=== PATIENT | female | born 1970 | race Caucasian/White ===

== ENCOUNTER 2018-02-26 17:50 | Observation (INO) ==
[2018-02-26] MEDS ORDERED: Dextrose Gel 15 GM/37.5 ML TUBE PO PRN ×2 (20:46)
[2018-02-26] MEDS ORDERED: Gabapentin 300 MG CAPSULE PO PRN (20:50)
[2018-02-26] MEDS ORDERED: Ibuprofen 800 MG TABLET PO PRN (21:20)
--- NOTE | 2018-02-26 21:46 | Internal Med History&Physical ---
Date of Encounter: 02/26/18 Time of Encounter: 21:41 Internal Medicine - H&P: HPI Chief complaint: chest pressure Admitted From: Hospital to Hospital Transfer History of present illness: Ms. CLAIRE is a 47 year old female with a pack-a-day smoking history and history of diabetes complicated by peripheral neuropathy, who presents on transfer from [place] where she went to with a complaint of left chest pressure and discomfort that started yesterday morning upon waking up. She states that when she woke up she felt as though her cat was laying on her chest which was not the case and it continued to progress during the course of the day not noticing any exacerbating features although obtained some relief with rest. She does state that she started having some back pain on the left side as well about 4 days ago. He denies accompanying diaphoresis, dyspnea, chills, fever or any characteristic radiation of the discomfort. She reports a strong family history of cardiac disease in her mother and her sisters. She received loading dose of aspirin and currently states that the pressure is about a 3 out of 10 in severity. Outside records were reviewed and remarkable for a white blood count of 13.9 with relative neutrophilia of 70%, normal BMP with a glucose of 200, d-dimer negative, negative troponin, unremarkable urinalysis, and normal coags. Past Med Surg Social Fam HX - Past Medical History Medical history: diabetes, hyperlipidemia Additional medical history: neuropathy, enlarged spleen, chronically elevated WBC, right benign kidney nodule Psychiatric history: depression - Past Surgical History Surgical History: , cholecystectomy Additional surgical history: hernia repair X3 - Social History Smoking Status: Current every day smoker Packs per day: 2-3 Smokeless Tobacco Status: No Alcohol use: none Drug use: none - Family History Mother Living Status: Hx Family Cardiac Disorders: Yes (heart blockage, HTN, heart failure) Internal Medicine - H&P: Meds Gabapentin [Neurontin] 300 mg PO HS 02/26/18 [History] Gabapentin [Neurontin] 300 mg PO HS PRN 02/26/18 [History] Ibuprofen [Advil] 800 mg PO BID PRN 02/26/18 [History] metFORMIN [Glucophage] 1,000 mg PO BID 02/26/18 [History] 3 Allergy/AdvReac Type Severity Reaction Status Date / Time acetaminophen [From Vicodin] Allergy Itching Verified 02/26/18 20:26 Amoxicillin Allergy Swelling Verified 02/26/18 20:26 of Lip/Tongue/Throat celecoxib [From Celebrex] Allergy Hives Verified 02/26/18 20:26 Erythromycin Base Allergy Swelling Verified 02/26/18 20:26 of Lip/Tongue/Throat hydrocodone [From Vicodin] Allergy Itching Verified 02/26/18 20:26 naproxen Allergy Hives Verified 02/26/18 20:26 Penicillins Allergy Swelling Verified 02/26/18 20:26 of Lip/Tongue/Throat Sulfa (Sulfonamide Allergy Hives Verified 02/26/18 20:26 Antibiotics) valdecoxib [From Bextra] Allergy Hives Verified 02/26/18 20:26 Oxycodone [From Percocet] AdvReac Vomiting Verified 02/26/18 20:26 promethazine [From Phenergan] AdvReac Vomiting Verified 02/26/18 20:26 All Systems PM: A 10-system review of systems was performed and is negative for pertinent findings except as documented above in the HPI. - Constitutional Vitals: Temp Pulse Resp BP Pulse Ox 98.0 F 82 14 119/84 99 02/26/18 20:04 02/26/18 20:04 02/26/18 20:04 02/26/18 20:04 02/26/18 20:04 Exam: Vitals: Reviewed and seen to be within normal limits. General: Well-developed female sitting comfortably out of bed to chair. Not in acute distress. Skin: Warm and supple. HEENT: Moist mucous membranes. No conjunctivae pallor. Neck: No lymphadenopathy. No JVD. No carotid bruits. No palpable thyroid. Chest: Normal thoracic expansion. Normal breath sounds. Clear to auscultation. Tenderness elicited on palpation of the left chest wall and left trapezius muscle. Heart: Normal S1 & S2; rhythmic. Grade 3/6 systolic murmur auscultated in the RUSB. Abdomen: Non-distended, soft and non-tender to palpation. No peritoneal reaction. Extremities: No clubbing, cyanosis or edema. No calf tenderness. Normal distal pulses. Neurological: Awake, alert and oriented to person, place and time. No focal deficits. Psych: Appropriate affect. - Assessment and plan (1) Chest pain Current Visit: Yes Status: Acute Assessment and plan: The patient's HEART score is at the moderate level based on his risk factors and this warrants observation. Her clinical presentation although somewhat suggestive of a cardiac event is now confounded with the presence of inducible chest pain and shoulder pain on palpation suggestive of discomfort of musculoskeletal origin and it coincides perfectly with her areas of complaint. -Will place on NSAIDs prn for pain which she takes at home. -Given her risk factors and risk of atypical presentation, will continue to trend troponins for certainty although since the time her discomfort started till now, one would expect a positive test if it were ACS. -She has a murmur on physical exam and a strong family history of heart disease in the women of her family coupled by her smoking history and poorly controlled diabetes. This prompts me to order a cardiac stress test to ensure she does not have atherosclerotic disease that may be associated with her current symptoms. -Will continue ASA 81mg daily for now. Qualifiers: Chest pain type: chest pain on breathing Qualified Code(s): R07.1 - Chest pain on breathing; R07.81 - Pleurodynia (2) Diabetes Current Visit: Yes Status: Chronic Assessment and plan: The patient is soon to be transitioned to an injectable agent by her PCP given her poor control; currently on metformin. -Will place on insulin sliding scale for now and check her A1C. Qualifiers: Diabetes mellitus type: type 2 Diabetes mellitus long term care pharmacist insulin use: without senior living use Diabetes mellitus complication status: with neurologic complications Diabetes mellitus complication detail: with polyneuropathy Qualified Code(s): E11.42 - Type 2 diabetes mellitus with diabetic polyneuropathy (3) Tobacco dependence Current Visit: Yes Status: Chronic Assessment and plan: Education and counseling given on the risks associated and need to quit. (4) DVT prophylaxis Current Visit: Yes Status: Acute Assessment and plan: SubQ heparin ordered. - Time Spent With Patient Total time spent is greater than 50% in coordination of care (as documented) at patient's floor/unit and/or counseling patient: 25 - 35 minutes
[2018-02-26 21:58] LABS: Basophils # 0.1 K/mcL (0.0-0.2); Basophils % 0.4 %; Eosinophils # 0.4 K/mcL (0.0-0.6); Eosinophils % 2.9 %; Hematocrit 40.3 % (35.3-44.9); Hemoglobin 14.1 g/dL (11.5-15.4); Immature Granulocytes % 0.5 % (0-4); Lymphocytes # 4.2 K/mcL (0.6-4.6); Lymphocytes % 31.6 %; Mean Corpuscular Volume 85.7 fL (83.0-100.0); Mean Platelet Volume 11.1 fL (9.4-12.4); Monocytes # 0.8 K/mcL (0.0-1.3); Monocytes % 5.7 %; Neutrophils # 7.8 K/mcL (1.6-8.9); Platelet Count 243 K/mcL (140-400); Red Cell Distribution Width 13.7 % (11.5-14.5); Segmented Neutrophils % 58.9 %
[2018-02-26] MEDS: *HR* Heparin 5,000 UNIT/ML VIAL SQ SCH (21:59)
[2018-02-26 22:15] LABS: Troponin I < 0.03 ng/mL (< 0.04)
[2018-02-26 22:28] LABS: Platelet Clumps Few (Not Present)
[2018-02-26 23:10] LABS: Estimated Average Glucose 169 mg/dl; Hemoglobin A1C 7.5 %
[2018-02-26 23:43] LABS: BUN/Creatinine Ratio 20 (6-26); Blood Urea Nitrogen 12 mg/dL (6-20); Calcium 9.2 mg/dL (8.6-10.3); Carbon Dioxide 14 mEq/L (23-29); Chloride 112 mEq/L (98-107); Chol/HDL Ratio 6.1 (0-4.9); Cholesterol 189 mg/dL (< 200); Glucose 138 mg/dL (70-105); HDL Cholesterol 31 mg/dL (40-59); LDL Cholesterol,Calculated 84 mg/dL (0-99); Osmolality,Calculated 296 (280-300); Potassium 4.6 mEq/L (3.5-5.1); Sodium 142 mEq/L (136-145); Triglycerides 368 mg/dL (< 150); eGFR For Non-African Americans > 60 (> 60)
[2018-02-26] MEDS: Insulin LISPRO 300 UNITS/3 ML VIAL SQ SCH (23:55)
[2018-02-27] MEDS: Insulin LISPRO 300 UNITS/3 ML VIAL SQ SCH ×2 (06:00→12:25)
[2018-02-27] MEDS: *HR* Heparin 5,000 UNIT/ML VIAL SQ SCH ×2 (06:15→16:03)
[2018-02-27] MEDS ORDERED: Aspirin 81 MG TAB.CHEW PO SCH (09:00)
[2018-02-27 15:53] VITALS: BP 122/79
--- NOTE | 2018-02-27 16:54 | Discharge Summary ---
- NOTES TO OUTPATIENT PROVIDER Notes to Outpatient Provider: Presented with chest pain underwent a stress test which was negative for any ischemia or infarct Orders not resulted at time of discharge: Pending orders 02/26/18 20:45 EKG [ECG 12 lead ECG] [ECG] Routine 02/27/18 07:04 NM migdalia perf SPECT multi [NM] Routine Date of Encounter: 02/27/18 Time of Encounter: 16:52 - Discharge Diagnosis (1) Chest pain Priority: Primary Status: Acute Qualifiers: Chest pain type: chest pain on breathing Qualified Code(s): R07.1 - Chest pain on breathing; R07.81 - Pleurodynia (2) Diabetes Priority: Secondary Status: Chronic Qualifiers: Diabetes mellitus type: type 2 Diabetes mellitus residential insulin use: without filler leaf cutter long use Diabetes mellitus complication status: with neurologic complications Diabetes mellitus complication detail: with polyneuropathy Qualified Code(s): E11.42 - Type 2 diabetes mellitus with diabetic polyneuropathy (3) Tobacco dependence Priority: Secondary Status: Chronic Hospital course: Ms. Stroud is a 47 year old female past medical history of diabetes with peripheral neuropathy current smoker hyperlipidemia. Originally presented to [facility] emergency room with complaints of left chest pressure and discomfort which continue to progress during the course of the day no exacerbating factors however pain was relieved with rest she has a strong family history of cardiac disease in both her mother and her sisters. She did receive aspirin troponins were negative [address]-T wave abnormalities. She underwent a cardiac stress test which was negative for any ischemia or infarct. Has not been experiencing any chest pain during admission. Patient was encouraged to stop smoking and offered cessation aids however patient declined at this time. Advised patient to stick to a low-fat low-salt diet and to attempt to lose weight and exercise. Nursing staff to give instructions on heart healthy diet Advised patient to follow-up with primary care provider next week she verbalized understanding currently is hemodynamically stable and is ready for discharge. Discharge discussed with: patient - Time Spent with Patient Total time spent providing and/or coordinating discharge services: - Discharge Medications Home Medications: Gabapentin [Neurontin] 300 mg PO HS PRN 02/26/18 [History] Ibuprofen [Advil] 800 mg PO BID PRN 02/26/18 [History] metFORMIN [Glucophage] 1,000 mg PO BID 02/26/18 [History] Allergies/Adverse Reactions: 3 Allergy/AdvReac Type Severity Reaction Status Date / Time acetaminophen [From Vicodin] Allergy Itching Verified 02/26/18 20:26 Amoxicillin Allergy Swelling Verified 02/26/18 20:26 of Lip/Tongue/Throat celecoxib [From Celebrex] Allergy Hives Verified 02/26/18 20:26 Erythromycin Base Allergy Swelling Verified 02/26/18 20:26 of Lip/Tongue/Throat hydrocodone [From Vicodin] Allergy Itching Verified 02/26/18 20:26 naproxen Allergy Hives Verified 02/26/18 20:26 Penicillins Allergy Swelling Verified 02/26/18 20:26 of Lip/Tongue/Throat Sulfa (Sulfonamide Allergy Hives Verified 02/26/18 20:26 Antibiotics) valdecoxib [From Bextra] Allergy Hives Verified 02/26/18 20:26 Oxycodone [From Percocet] AdvReac Vomiting Verified 02/26/18 20:26 promethazine [From Phenergan] AdvReac Vomiting Verified 02/26/18 20:26 Date of admission: 02/26/18 19:28 Primary care physician: PCP NONE Discharging clinician: Alize Heredia Anticipated date of discharge: 02/27/18 - Constitutional Vitals: Temp Pulse Resp BP Pulse Ox 98.3 F 84 18 122/79 98 02/27/18 15:49 02/27/18 15:49 02/27/18 15:49 02/27/18 15:49 02/27/18 15:49 General appearance: Present: A&O X 3, obese - Head Head exam: Present: atraumatic, normocephalic - Eye Eye exam: Present: PERRL, conjuntiva pink, sclera anicteric Pupils: Present: PERRL - Neck Neck exam general surgery: Present: supple, trachea midline. Absent: lymphadenopathy - Respiratory Respiratory exam: Present: CTAB. Absent: accessory muscle use, rales, rhonchi, wheezes - Cardiovascular Cardiovascular exam: Present: RRR, +S1, +S2. Absent: diastolic murmur, gallop, rubs, systolic murmur - GI/Abdominal GI/Abdominal exam: Present: normal bowel sounds, soft, no peritoneal signs. Absent: distended, tenderness - Extremities Exam Extremities exam: Present: warm, radial pulses palpable and symmetrical. Absent : calf tenderness, cyanotic, pedal edema - Neurological Exam Neurological exam: Present: CN II-XII intact, oriented X3, no focal deficits. Absent: pronater drift, facial droop, speech deficit - Skin Skin exam: Present: dry, intact - Patient Status Disposition: Home, Self-Care Condition: Good - Discharge Instructions Instructions: Chest Pain (DC), Low Fat Diet (DC), Chronic Obstructive Pulmonary Disease (GEN) Follow Up With: Deirdre Mcmahan, NURSERY TEACHER [Advanced Practice Nurse] - (PLEASE FOLLOW UP WITH YOUR PRIMARY CARE PROVIDER WITHIN ONE WEEK) NONE,PCP [Primary Care Provider] - - Diet and Activity Activity: ambulate only with your walker Diet: low fat, low cholesterol
--- NOTE | 2018-02-28 02:14 | Electrocardiograph Report ---
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
== END 2018-02-27 18:20 | disposition home or self-care (01) ==
LOC: 3BNU
PROVIDERS: ADMIT Pediatrics; ATTEND Pediatrics